=== PATIENT | male | born 1980 | race American Indian/Alaskan Native ===

== ENCOUNTER 2016-07-01 19:09 | Emergency (ER) | payer MEDICAID ==
[2016-07-01] MEDS ORDERED: NS 1,000 ML IV ONE (19:16)
--- NOTE | 2016-07-01 19:21 | EDPHY ---
H & P Time Seen by Provider: 07/01/16 19:14 HPI/ROS: CHIEF COMPLAINT: Cold feet, intoxication HISTORY OF PRESENT ILLNESS: patient admits to drinking heavily today and complains of cold feet. he is homeless and [place]. He said that feet cold today. He was wearing clothes including socks, but stepped on the stenosis even what. He admits to drinking approximately half a gal of whiskey today. He has no chest pain or shortness of breath. No abdominal complaints. No urinary complaints. No headache or neck pain. No recent fever or chills. No skin complaints. He does note moderate to severe pain in the feet. No anesthesia with some paresthesia. Worse with any palpation or movement. Does improve with rest. He does not provide any of the specifics of this. No other associated complaints obtainable. He is conversing easily without the need for stimulus and mentating appropriately without confusion. REVIEW OF SYSTEMS: Ten systems reviewed and are negative unless otherwise noted in the HPI EXAMINATION General Appearance: Alert, no distress, somnolent but easily awakes. unkempt Head: normocephalic, atraumatic Eyes: Pupils equal and round, no conjunctival pallor or injection ENT, Mouth: Mucous membranes moist Neck: Normal inspection, supple, non-tender Respiratory: scattered rhonchi. No consolidation Cardiovascular: Regular rate and rhythm Gastrointestinal: Abdomen is soft and nontender Back: non-tender, no bony abnormalities Neurological: A&Ox4 With normal mentation. No focal deficits. Strength symmetric 5/5. Skin: Warm and dry, no rash . Mild erythema to bilateral feet. No necrosis / gangrene or signs of infection. Extremities: No pedal edema. Feet are tender on the dorsum and plantar surface. No lesions noted. Psychiatric: Mood and affect normal DIFFERENTIAL DIAGNOSES: Including but not limited to cute alcohol intoxication, cold exposure, erythema , chronic alcohol abuse MDM: acute alcohol intoxication without any outward signs of trauma, injury, or frostbite. His feet are well appearing. He is actually appears much more well groomed than typical for those her homeless. He has ambulated without assistance here he is mentating appropriately. He is alert and oriented. He is stable for discharge to [facility], and he will be sent there by taxi. Patient is comfortable with this plan and discharged in stable condition. SUPERVISION: Patient was evaluated in conjunction with the supervising physician. Please see their note for details. Source: Patient Exam Limitations: No limitations - Personal History Tetanus Vaccine Date: 2015 - Medical/Surgical History Hx Asthma: No Hx Chronic Respiratory Disease: No Hx Diabetes: No Hx Cardiac Disease: No Hx Renal Disease: No Hx Cirrhosis: No Hx Alcoholism: Yes Hx HIV/AIDS: No Hx Splenectomy or Spleen Trauma: No Other PMH: DENIES. Pt. states: "ADD, ETOH (2 1/2 gal. vodka/day), Bipolar, depression, past use of LSD, methampethamine, marijuana. schizophrenia Present smoker 1ppd x 22 yrs. "I have ADD/ADHD." - Social History Smoking Status: Heavy smoker Constitutional: Initial Vital Signs Temperature (C) 97.5 F 07/01/16 19:09 Heart Rate 80 07/01/16 19:09 Respiratory Rate 20 07/01/16 19:09 Blood Pressure 157/108 H 07/01/16 19:09 O2 Sat (%) 96 07/01/16 19:09 O2 Delivery Mode Room Air Allergies/Adverse Reactions: No Known Allergies Allergy (Verified 02/21/16 18:57) Home Medications: Medication Instructions Recorded NK [No Known Home Meds] 07/01/16 Medical Decision Making - Data Points Medications Given: Discontinued Medications Sodium Chloride (Ns) 1,000 mls @ 0 mls/hr IV ONCE ONE PRN Reason: Wide Open Stop: 07/01/16 19:17 Last Admin: 07/01/16 19:24 Dose: 1,000 mls Departure - Departure Disposition: Other Psych, Not [place] Clinical Impression: Chronic alcohol abuse Acute alcohol intoxication Qualifiers: Complication of substance-induced condition: uncomplicated Qualifier Code: ( F10.120) Alcohol abuse with intoxication, uncomplicated Cold exposure Qualifiers: Encounter type: initial encounter Qualifier Code: (T69.9XXA) Effect of reduced temperature, unspecified, initial encounter Condition: Good Referrals: Patient,NotPresent [Unknown] - As per Instructions Alexus Davis MD [Medical Doctor] - As per Instructions
[2016-07-01 20:15] VITALS: BP 165/84; PULSE 81; RESP 18; TEMP 97.9; O2SAT 98
== END 2016-07-01 20:13 ==
LOC: EDBD → EDUNIT#
DX: F10.120 Alcohol abuse with intoxication, uncomplicated (principal); T69.9XXA Effect of reduced temperature, unspecified, initial encounter; F17.200 Nicotine dependence, unspecified, uncomplicated; X31.XXXA Exposure to excessive natural cold, initial encounter